=== PATIENT | female | born 2005 | race Two or more races ===

== ENCOUNTER 2024-11-09 05:15 | Inpatient (IN) | payer MEDICAID, SELFPAY ==
[2024-11-09] VITALS (77 sets, daily range): BP systolic 100–118; BP diastolic 53–67; PULSE 75–202; RESP 20; TEMP 36.7–37.2; O2SAT 61–100; BMI 31.6
--- NOTE | 2024-11-09 06:01 | XR_ITS ---
Examination: age Limited Technique: Limited transabdominal sonographic images pelvis Exam date and time: November 09, 2024 0709 hrs. Indications: Preinduction, unknown presentation today Findings: Viable intrauterine gestation cephalic presentation spine maternal left Cardiac motion 152 BPM Estimated weight 4176 g Amniotic fluid index 5.6 cm Cervix 2.5 cm Impression: Viable intrauterine gestation cephalic presentation
[2024-11-09 06:50] LABS: Basophils % (Auto) 0 % (0-2.5); Eosinophils % (Auto) 0 % (0-10); Hematocrit 30.5 % (36.0-46.0); Hemoglobin 9.9 g/dL (12.0-16.0); Immature Granulocytes % (Auto) 1 % (0-0); Immature Granulocytes Auto 0.13 Thou/mm3 (0.00-0.00); Lymphocytes # (Auto) 1.9 Thou/mm3 (1.0-4.8); Lymphocytes % (Auto) 18 % (10-50); Mean Corpuscular HGB Conc 32.5 g/dl (31.0-37.0); Mean Corpuscular Hemoglobin 24.8 pg (25.0-35.0); Mean Corpuscular Volume 76 fL (80-100); Monocytes # (Auto) 0.7 Thou/mm3 (0.0-0.8); Monocytes % (Auto) 6 % (0-12); Neutrophils % (Auto) 74 % (37-80); Nucleated Red Blood Cell % 0 /100 WBC (0); Platelet Count 288 Thou/mm3 (140-440); RDW Standard Deviation 41.5 fL (36.4-46.3); Red Blood Count 3.99 Miln/mm3 (4.00-5.20); White Blood Count 10.7 Thou/mm3 (3.6-11.0)
[2024-11-09 07:06] LABS: Syphilis Nonreactive (Nonreactive)
--- NOTE | 2024-11-09 07:21 | ESHP_ITS ---
Documentation for date of: 11/09/24 OB Labor/Induct. HPI History of Present Illness Chief complaint: 19 y/o 41w 2d presents to L&D for IOL due to postdates. : 1 Para: 0 Term pregnancies: 0 pregnancies: 0 Living children: 0 History of Abortions: Spontaneous and Elective: 0 History of Vaginal deliveries: 0 History of sections: No History of : No OMAR: 10/31/24 Gestational Age (weeks): 41 Gestational Age (days): 2 Indication for induction: post dates History of present illness: 19 y/o 41w 2d presents to L&D for IOL due to postdates, cervix is 1 thick and -3 vertex. membranes intact. GBS is neg. Pt's has been complicated by anemia and possible macrosomic fetus.[facility] sono in September showed an LGA fetus with growth at 91%ile. EFW of fetus as of today is about 4200g. History of Present Dating criteria: LMP confirmed by 1st trimester US Adequate Care: Yes Ultrasounds: normal 1st trimester US and normal mid trimester US Obstetrical complications: none and other (Anemia and macrosomic fetus) Labs Maternal Blood Type: O Pos Labs: Positive: Rubella Titre, Negative: RPR, Hepatitis B, HIV, Chlamydia, Gonorrhea and Group Beta Strep and Unknown: Herpes Type 1, Herpes Type 2 and Covid-19 Review of Systems Review of Systems Systems Reviewed: All systems reviewed, normal except as documented Past Medical History Surgical History SURGICAL: Negative Section Meds Home Medications and Allergies Allergies Allergy/AdvReac Type Severity Reaction Status Date / Time NKA* Allergy Uncoded 10/22/17 21:45 OB Exam Physical Exam Vital signs: Pulse BP Pulse Ox 97 117/66 64 L 11/09/24 05:35 11/09/24 05:35 11/09/24 05:30 Constitutional Constitutional: no acute distress Routine HEENT Exam Head: Present normocephalic and atraumatic Eye: Present EOMI, PERRL and normal accommodation ENT: Present mucous membranes moist Routine Neck Exam Neck: Present full ROM Routine Respiratory Exam Respiratory: Absent respiratory distress Routine Cardiovascular Exam Cardiovascular: Present RRR Routine Abdominal Exam Abdominal: Present soft Comments: Gravid Uterus EFW 4200g Routine Exam External: Present normal urethra appearance; Absent lesions Detailed Labor and Delivery Exam Dilation (cm): 1 Effacement (%): 50 Cervix position: posterior station: -3 Consistency: soft Presentation: Vertex Membranes: intact Baseline heart rate: 130 monitor accelerations: 15x15 monitor decelerations: None senior care variability: Moderate (11-25) Contraction frequency (min): none Routine Extremities Exam Extremities: Present full ROM Routine Back/Spine/Pelvis Exam Back/Spine: Present full ROM Routine Skin Exam Skin: Present intact, dry and warm Routine Neurological Exam Neurological: Present alert, oriented X3 and CN II-XII intact Routine Psychiatric Exam Psychiatric: Present normal affect and normal thought process OB Results Labs 11/09/24 06:00 Labs: Short CBC 11/09/24 Range/Units 06:00 WBC 10.7 (3.6-11.0) Thou/mm3 Hgb 9.9 L (12.0-16.0) g/dL Hct 30.5 L (36.0-46.0) % Plt Count 288 (140-440) Thou/mm3 OB Assessment & Plan Assessment and Plan (1) Encounter for induction of labor: Status: Acute (2) Post term at 41 weeks gestation: Status: Acute (3) Anemia affecting in third trimester: Status: Acute (4) Macrosomia of fetus affecting management of mother in warner in third trimester: Status: Acute Additional Plan Induction method: other (Cervidil) Plan: induction, anticipate NVD and consult MD prn Additional Plan Comment: Routine admit orders Consult anesthesia for an epidural Intermittent monitoring ok early in the induction process OK to eat regular diet until more active labor Shoulder precautions Plan to have MD on the unit during delivery Updated Dr. Prieto
[2024-11-09] MEDS: DINOPROSTONE 10 MG VAG.SUPP VAGINAL (08:00)
[2024-11-10] VITALS (309 sets, daily range): BP systolic 0–153; BP diastolic 0–80; PULSE 77–140; RESP 17–18; TEMP 36.8–37.4; O2SAT 83–100
[2024-11-10] MEDS: MISOPROSTOL 50 mCg TABLET PO (00:27)
[2024-11-10] MEDS: fentaNYL CIT INJ 50 mCg/ML AMP 2ML 100 MCG IV (04:00)
[2024-11-10] MEDS: RINGERS LACTATED 1000 ML 1,000 ML 100 ML IV (05:39)
--- NOTE | 2024-11-10 07:06 | PD.LDPN ---
Documentation for date of: 11/10/24 OB Labor Progress Note Pain Control Pain control: other (Requesting an epidural) Pelvic Exam Dilation (cm): 4 Effacement (%): 90 station: 0 Amniotic membrane status: Ruptured (AROM- clear) Contractions Monitor mode: External Contraction frequency: 2-4 Contraction duration: 40-60 Contraction phase: Contraction Contraction intensity: Moderate Status status: Category l Assessment and Plan Assessment: induction ongoing Plan OB labor note: continuous present management Comments: AROM performed - clear fluids Pt is progressing well Pt to get an epidural If contractions space out then start low dose pitocin
--- NOTE | 2024-11-10 14:07 | PD.LDPN ---
Documentation for date of: 11/10/24 OB Labor Progress Note Pain Control Pain control: epidural Pelvic Exam Dilation (cm): 10 Effacement (%): 100 station: +1 Amniotic membrane status: Ruptured (AROM- clear) Contractions Monitor mode: External Contraction frequency: 2-5 Contraction duration: 40-60 Contraction phase: Contraction Contraction intensity: Moderate Status status: Category l Assessment and Plan Assessment: other (2nd stage) Plan OB labor note: begin Pitocin augmentation Comments: Luis Eduardo start pitocin to get contractions close together so pt can start pushing. Test pushed and pt was able to move baby a little Will turn the epidural off Anticipaet
[2024-11-10] MEDS: OXYTOCIN in NS 30 units 30 UNIT/500 ML BAG IV (14:16)
[2024-11-10] MEDS: MINERAL OIL 30 ML UDC TOP (15:38)
[2024-11-10] MEDS: LIDOCAINE HCL 1% 20 ML VIAL INFL (15:38)
[2024-11-10] MEDS: OXYTOCIN in NS 20 units 20 UNIT/1,000 ML BAG 125 UNIT IV (15:41)
[2024-11-10] MEDS: TRANEXAMIC ACID 1,000 MG IVPB 1,000 MG/100 ML BAG 200 MG IV ×2 (16:05→18:02)
--- NOTE | 2024-11-10 16:38 | PD.LDDELS ---
Data ([place]opez) Data Hx Section: No Maternal Blood Type: O Pos Rubella Titre: Positive RPR: Non-reactive Labs: Negative: RPR, Hepatitis B, HIV, Chlamydia, Gonorrhea and Group Beta Strep and Unknown: Herpes Type 1 and Herpes Type 2 : 1 Para: 0 Term: 0 : 0 Livin : 0 Delivery Data (Lopez) Labor Data Stimulated/Augmented: No Induction: Yes Method: Cervidil ROM Date: 11/10/24 ROM Time: 06:57 Rupture Type: AROM Amniotic Fluid: Clear Delivery Data EDC: 10/31/24 EDC calculated by:: LMP/early US confirmation Labor Onset Stage 1 Date: 11/10/24 Labor Onset Stage 1 Time: 06:57 Labor Onset Stage 2 Date: 11/10/24 Labor Onset Stage 2 Time: 15:05 Delivery Date: 11/10/24 Delivery Time: 15:28 Gestational age (weeks): 41 Gestational age (days): 3 Placenta Delivery Date: 11/10/24 Placenta Delivery Time: 15:39 Delivered by: Kacey Coronado Delivery nurse: Devi Sahni Principal Cloud Architect at delivery: No Support person(s) at delivery: FOB Other staff at delivery: 2nd Nurse Other staff at delivery: 2nd Nurse Other staff at delivery: ObanaCt Delivery Method Delivery: Vaginal Delivery Type: Spontaneous Presentation: Vertex Position: OA Anesthesia Type Primary Anesthesia: Epidural Secondary Anesthesia: Local Delivery Room Medications Other Intrapartum Medications: No Post Delivery Medications: Antibiotics Post Delivery Medications N/A: Yes Placenta Placenta Delivery: Spontaneous Placenta Cultures Obtained: No Placenta Sent for Examination: No Cord Sample: Cord Blood Obtained Episiotomy Episiotomy: None Lacerations #1: Perineal: 2nd degree #2: Labial: Bilaterallabial and right sulcus tear Perineal repair Sutures used for repair: 3.0 Vicryl (CTx2 ) and 4.0 Vicryl (SH x2) EBL Estimated blood loss (ml): 500 Umbilical Cord Umbilical Vessels: 3 Nuchal Cord: Not Applicable Body Cord: Not Applicable Additional Procedures of a viable male infant. Infant's anterior shoulder delivered with gentle downward traction subsequent delivery of the posterior shoulder and the body without complications. Infant placed on mother's abdomen. Vigorous cry upon delivery. Cord was clamped. Cut by FOB. Cord blood obtained. Three-vessel cord noted. Placenta expelled spontaneously and intact. Patient sustained a second-degree perineal laceration. Repaired using a 3-[address] suture. Patient also sustained bilateral labial lacerations both repaired using a 4-0 Vicryl on an SH suture. Patient also tore on the right sulcus another 3-[address] suture was used to repair that. Patient had considerable amount of brisk bleeding. Gave patient TXA x 2. And IV Pitocin. And IV Pitocin to continue to . Excellent hemostasis achieved after vigorous fundal massage and removal of clots from the posterior fornix. EBL 500. Sponge and needle count correct. Mother and baby stable, skin to skin and bonding in LDR. Patient to receive 2 g of Ancef for 24 hours. [place] Data ([place]) [place] Data Gender: Male Infant Weight Grams: 4300 1 Minute Total: 9 5 Minute Total: 9
[2024-11-10] MEDS: RINGERS LACTATED 1000 ML 1,000 ML 999 ML IV (18:33)
[2024-11-10 18:35] LABS: Basophils % (Auto) 0 % (0-2.5); Eosinophils # (Auto) 6.8 Thou/mm3 (0.0-0.5); Eosinophils % (Auto) 29 % (0-10); Hematocrit 22.1 % (36.0-46.0); Immature Granulocytes % (Auto) 1 % (0-0); Immature Granulocytes Auto 0.17 Thou/mm3 (0.00-0.00); Lymphocytes # (Auto) 0.9 Thou/mm3 (1.0-4.8); Lymphocytes % (Auto) 4 % (10-50); Mean Corpuscular HGB Conc 32.6 g/dl (31.0-37.0); Mean Corpuscular Hemoglobin 25.2 pg (25.0-35.0); Mean Corpuscular Volume 77 fL (80-100); Monocytes # (Auto) 1.3 Thou/mm3 (0.0-0.8); Monocytes % (Auto) 6 % (0-12); Neutrophils # (Auto) 14.4 Thou/mm3 (1.8-7.7); Neutrophils % (Auto) 61 % (37-80); Nucleated Red Blood Cell % 0 /100 WBC (0); Platelet Count 249 Thou/mm3 (140-440); RDW Standard Deviation 43.2 fL (36.4-46.3); Red Blood Count 2.86 Miln/mm3 (4.00-5.20); White Blood Count 23.6 Thou/mm3 (3.6-11.0)
[2024-11-10 18:41] LABS: Hemoglobin 7.2 g/dL (12.0-16.0)
[2024-11-10] MEDS: ceFAZolin/D5W 2 GM IV 2 GM/100 ML BAG IV (18:54)
[2024-11-11 03:10] VITALS: BP 105/66; PULSE 100; RESP 16; TEMP 36.8; O2SAT 97
[2024-11-11 03:38] LABS: Basophils % (Auto) 0 % (0-2.5); Eosinophils % (Auto) 0 % (0-10); Hematocrit 25.1 % (36.0-46.0); Immature Granulocytes % (Auto) 1 % (0-0); Immature Granulocytes Auto 0.12 Thou/mm3 (0.00-0.00); Lymphocytes # (Auto) 1.7 Thou/mm3 (1.0-4.8); Lymphocytes % (Auto) 8 % (10-50); Mean Corpuscular HGB Conc 33.5 g/dl (31.0-37.0); Mean Corpuscular Hemoglobin 25.3 pg (25.0-35.0); Mean Corpuscular Volume 76 fL (80-100); Monocytes # (Auto) 1.1 Thou/mm3 (0.0-0.8); Monocytes % (Auto) 6 % (0-12); Neutrophils # (Auto) 16.9 Thou/mm3 (1.8-7.7); Neutrophils % (Auto) 85 % (37-80); Nucleated Red Blood Cell % 0 /100 WBC (0); Platelet Count 187 Thou/mm3 (140-440); RDW Standard Deviation 43.1 fL (36.4-46.3); Red Blood Count 3.32 Miln/mm3 (4.00-5.20); White Blood Count 19.9 Thou/mm3 (3.6-11.0)
[2024-11-11 03:41] LABS: Hemoglobin 8.4 g/dL (12.0-16.0)
[2024-11-11] MEDS: ceFAZolin/D5W 2 GM IV 2 GM/100 ML BAG IV ×2 (06:05→13:48)
--- NOTE | 2024-11-11 07:58 | PD.LDDS ---
DS: Providers Provider Date of admission: 11/09/24 05:15 Primary care physician: Reanna Garcia PA-C Admitting Provider: Juan Prieto MD Attending Provider on Admission: Kacey Coronado CNM Attending Provider on DC: Kacey Coronado CNM Discharging Provider: Kacey Coronado CNM Anticipated date of discharge: 11/11/24 DS: Diagnosis Discharge Diagnosis (1) Normal spontaneous vaginal delivery: Status: Acute (2) Encounter for care of lactating mother: Status: Acute (3) Macrosomia of fetus affecting management of mother in warner in third trimester: Status: Acute (4) Anemia affecting in third trimester: Status: Acute (5) Post term at 41 weeks gestation: Status: Acute (6) Encounter for induction of labor: Status: Acute Problem List Completed Was Problem List Reviewed/Reconciled?: Yes Summary/Hosp Course Brief History: 19 y/o 41w 2d presents to L&D for IOL due to postdates, cervix is 1 thick and -3 vertex. membranes intact. GBS is neg. Pt's has been complicated by anemia and possible macrosomic fetus.[facility] sono [facility] September showed an LGA fetus with growth at 91%ile. EFW of fetus as of today is about 4200g. 11/10/24: of a viable male . Infant's anterior shoulder delivered with gentle downward traction subsequent delivery of the posterior shoulder and the body without complications. Infant placed on mother's abdomen. Vigorous cry upon delivery. Cord was clamped. Cut by FOB. Cord blood obtained. Three-vessel cord noted. Placenta expelled spontaneously and intact. Patient sustained a second-degree perineal laceration. Repaired using a 3-[address] suture. Patient also sustained bilateral labial lacerations both repaired using a 4-0 Vicryl on an SH suture. Patient also tore on the right sulcus another 3-[address] suture was used to repair that. Patient had considerable amount of brisk bleeding. Gave patient TXA x 2. And IV Pitocin. And IV Pitocin to continue to . Excellent hemostasis achieved after vigorous fundal massage and removal of clots from the posterior fornix. EBL 500. Sponge and needle count correct. Mother and baby stable, skin to skin and bonding in LDR. Patient to receive 2 g of Ancef for 24 hours. 11/11/24: day 1. Patient is stable and afebrile doing well. Breast-feeding well. Denies dizziness shortness of breath. No problems voiding. Passing gas. Uterus is nontender fundus firm minimal lochia. Eager to go home. Discharge instructions given. Patient to follow-up with Kacey Coronado CNM in 3 weeks . Peripartum Data Delivery Method: Normal Vaginal Delivery Episiotomy Description: None Laceration Description: yes and see Delivery Summary complications: none [place] 1: Gender: Male Disposition of : home Status at Discharge Cognitive/behavioral status at discharge: Alert and oriented x 3 Functional status at discharge: independent ambulation Overall status at discharge: patient is progressing back to baseline Time Spent with Patient Time attestation: Total time spent providing and/or coordinating discharge services: Time spent: Greater than 30 minutes Exam Vital Signs Temp Pulse Resp BP Pulse Ox 99.3 F 118 H 20 92/53 L 100 11/10/24 13:29 11/10/24 16:18 11/09/24 20:07 11/10/24 16:18 11/10/24 16:18 Constitutional Constitutional: no acute distress Routine HEENT Exam Head: Present normocephalic and atraumatic Eye: Present EOMI, PERRL and normal accommodation ENT: Present mucous membranes moist Routine Neck Exam Neck: Present supple, full ROM and trachea midline Routine Respiratory Exam Respiratory: Present chest non-tender, lungs clear, normal breath sounds and no resp distress Routine Cardiovascular Exam Cardiovascular: Present RRR Routine Abdominal Exam Abdominal: Present soft and normoactive bowel sounds; Absent tenderness or distended Comments: Uterus nontender Fundus firm Routine Exam External: Present normal urethra appearance, swelling and lacerations (Healing); Absent lesions Routine Extremities Exam Extremities: Present full ROM, pulses intact and normal capillary refill; Absent calf tenderness or tenderness Routine Back/Spine/Pelvis Exam Back/Spine: Present full ROM Routine Skin Exam Skin: Present intact, dry and warm Routine Neurological Exam Neurological: Present alert, oriented X3 and CN II-XII intact Routine Psychiatric Exam Psychiatric: Present normal affect and normal thought process Discharge Plan Plan Patient Disposition: HOME (Self Care) Patient condition on transfer: Stable Prescriptions/Referrals Prescriptions/Med Rec: New ibuprofen 800 mg tablet 800 mg PO Q6H MDD 4 PRN (Reason: pain) Qty: 120 0RF docusate sodium [Colace] 100 mg capsule 100 mg PO BID Qty: 60 0RF lanolin 50 % ointment 1 applic topical TID PRN (Reason: skin irritation) Qty: 15 0RF Discontinued ibuprofen 600 MG tablet 1 tab PO Q8HR PRN (Reason: pain) Qty: 30 0RF Referrals: Reanna Garcia PA-C [Primary Care Provider] - Patient/Caregiver Discharge Instructions Meds to Beds: No Discharge Activity: activity as tolerated Other Discharge Activity Instructions:: Follow-up with Kacey Coronado CNM in 3 weeks Education Materials: After a Vaginal , How to Breastfeed, After Delivery Concerns, : Caring for Yourself Print Language: Palauan Stand Alone Forms: Maryam Award Info., Patient Portal Info Letter Discharge Order Discharge Orders: Discharge (Routine); Ordered 11/11/24 Ordered By: Kacey Coronado Planned Discharge Date 11/11/24
[2024-11-11 08:15] VITALS: BP 109/66; PULSE 93; RESP 18; TEMP 37; O2SAT 96
[2024-11-11] MEDS: IBUPROFEN TAB 400 MG TABLET 800 MG PO (08:27)
[2024-11-11] MEDS: DOCUSATE SOD 100 MG CAPSULE PO (08:27)
[2024-11-11 11:57] LABS: Basophils % (Auto) 0 % (0-2.5); Eosinophils % (Auto) 0 % (0-10); Hematocrit 24.3 % (36.0-46.0); Immature Granulocytes % (Auto) 1 % (0-0); Immature Granulocytes Auto 0.17 Thou/mm3 (0.00-0.00); Lymphocytes # (Auto) 1.8 Thou/mm3 (1.0-4.8); Lymphocytes % (Auto) 11 % (10-50); Mean Corpuscular HGB Conc 33.3 g/dl (31.0-37.0); Mean Corpuscular Hemoglobin 25.2 pg (25.0-35.0); Mean Corpuscular Volume 76 fL (80-100); Monocytes # (Auto) 0.9 Thou/mm3 (0.0-0.8); Monocytes % (Auto) 5 % (0-12); Neutrophils # (Auto) 14.4 Thou/mm3 (1.8-7.7); Neutrophils % (Auto) 83 % (37-80); Nucleated Red Blood Cell % 0 /100 WBC (0); Platelet Count 174 Thou/mm3 (140-440); RDW Standard Deviation 43.4 fL (36.4-46.3); Red Blood Count 3.21 Miln/mm3 (4.00-5.20); White Blood Count 17.3 Thou/mm3 (3.6-11.0)
[2024-11-11 12:05] LABS: Hemoglobin 8.1 g/dL (12.0-16.0)
[2024-11-11 12:25] VITALS: BP 97/58; PULSE 87; RESP 16; TEMP 36.8
[2024-11-11 16:31] VITALS: BP 111/65; PULSE 90; RESP 18; TEMP 36.8
--- NOTE | 2024-11-12 11:42 | CHAP ---
Addendum entered by Yovanny Correia 11/12/24 11:43: Patient was visited on 11/09, not 11/12. Time was 11:30 Original Note: Patient was visited by the Spiritual Care Volunteer who gave Baby Ware. Volunteer was in the hospital from c10:00-11:30)
== END 2024-11-11 17:40 | disposition home or self-care (01) | DRG 560 ==
LOC: S4SX 11-10 16:24 → S4NX 11-10 23:39
PROVIDERS: Admitting Provider Obstetrics & Gynecology; PCP Physician Assistant; Visit Provider Nurse Practitioner Women's Health
DX: O48.0 Post-term pregnancy (principal); Z37.0 Single live birth; Z3A.41 41 weeks gestation of pregnancy; O70.1 Second degree perineal laceration during delivery; O36.63X0 Maternal care for excessive fetal growth, third trimester, not applicable or unspecified; O99.02 Anemia complicating childbirth
CPT/HCPCS: 36415; 59409; 76815; 85025; 86780; 86850; 86900; 86901; 86923; 94762; J0689; J2590; J2795; J3010; J3490; J7120; P9016; A9270; J0690

== ENCOUNTER 2025-10-29 21:41 | Emergency (ER) | payer MEDICAID, SELFPAY ==
[2025-10-29 21:42] VITALS: BMI 28.3
[2025-10-29 21:59] VITALS: BP 119/76; PULSE 80; RESP 16; TEMP 36.8; O2SAT 97
--- NOTE | 2025-10-29 22:04 | XR_ITS ---
Examination: CT abdomen and pelvis without contrast. Coronal 3-D reconstructions. Sagittal 2-D reconstructions. Date and time of exam: October 29, 2025, 1146 hours INDICATIONS: Upper abdominal pain 11 months CTDI: vol (mGy): 10.5 DLP: (mGycm): 581 Technique: Axial images of the abdomen have been obtained, 3 mm slice thickness Intravenous contrast material has not been administered. Low dose protocols were performed. One or more of the following dose reduction techniques were used; automated exposure control, adjustment of the mA and/or KV according to patient size, use of iterative reconstruction technique. Findings: No focal liver or splenic lesions Contracted gallbladder No pancreatic or adrenal mass No renal or ureteral calculi, no hydronephrosis Aorta normal size Normal appendix Localized inflammation in the mesenteric fat in the right lower abdomen image 128 No bowel obstruction or diverticulitis, 4 cm right ovarian cyst Urinary bladder intact Intact osseous structures IMPRESSION: No renal or ureteral calculi, no hydronephrosis Normal appendix Localized inflammation in the mesenteric fat which appears to extend to the right ovarian 4 cm cystic mass, recommend pelvic sonography follow-up
--- NOTE | 2025-10-29 22:04 | PD.EDRME ---
Rapid Medical Screening Exam RME Arrival date/time: 10/29/25 21:41 This is a case of 20-year-old female with no medical history came into the emergency room due to generalized abdominal pain for 2 weeks associated with nausea vomiting persistence of the symptoms. Thus decided to sought consult here in the emergency room denies Chief Complaint: Abdominal Pain Time Seen by Provider: 10/29/25 21:44 Vital signs: Vital Signs Temperature 98.3 F 10/29/25 21:59 Pulse Rate 80 10/29/25 21:59 Respiratory Rate 16 10/29/25 21:59 Blood Pressure 119/76 10/29/25 21:59 Pulse Oximetry (%) 97 10/29/25 21:59 Oxygen Delivery Method Room Air 10/29/25 21:59 Exam: Moderate tenderness on both lower abdomen and epigastric area no guarding no rebound no rigidity Clinical Impression: abdominal pain
[2025-10-29 22:34] LABS: Collection Type, Urine Clean Catch
[2025-10-29 22:42] LABS: Basophils # (Auto) 0.0 Thou/mm3 (0.0-0.2); Basophils % (Auto) 0 % (0-2.5); Eosinophils # (Auto) 0.1 Thou/mm3 (0.0-0.5); Eosinophils % (Auto) 1 % (0-10); Hematocrit 34.6 % (36.0-46.0); Hemoglobin 10.8 g/dL (12.0-16.0); Immature Granulocytes Auto 0.03 Thou/mm3 (0.00-0.00); Lymphocytes # (Auto) 2.9 Thou/mm3 (1.0-4.8); Lymphocytes % (Auto) 29 % (10-50); Mean Corpuscular HGB Conc 31.2 g/dl (31.0-37.0); Mean Corpuscular Hemoglobin 23.6 pg (25.0-35.0); Mean Corpuscular Volume 76 fL (80-100); Monocytes # (Auto) 0.6 Thou/mm3 (0.0-0.8); Monocytes % (Auto) 6 % (0-12); Neutrophils # (Auto) 6.3 Thou/mm3 (1.8-7.7); Neutrophils % (Auto) 63 % (37-80); Nucleated Red Blood Cell # 0.00 Thou/mm3 (0.00-0.00); Nucleated Red Blood Cell % 0 /100 WBC (0); Platelet Count 336 Thou/mm3 (140-440); RDW Standard Deviation 43.1 fL (36.4-46.3); Red Blood Count 4.57 Miln/mm3 (4.00-5.20); White Blood Count 9.9 Thou/mm3 (3.6-11.0)
[2025-10-29 22:56] LABS: Alanine Aminotransferase 22 U/L (10-49); Albumin, Serum 5.1 gm/dL (3.5-5.0); Albumin/Globulin Ratio 1.9 (1.2-2.2); Alkaline Phosphatase 66 U/L (46-116); Anion Gap 10 (7-16); Aspartate Amino Transferase 27 U/L (0-34); BUN/Creatinine Ratio 18 Ratio (12-20); Bilirubin,Total 0.3 mg/dL (0.3-1.2); Blood Urea Nitrogen 11 mg/dL (9-23); Calcium 9.6 mg/dL (8.3-10.6); Calcium (Corrected) 9.6 mg/dL (8.5-10.1); Carbon Dioxide 26.6 mMol/L (20.0-31.0); Chloride 107 mMol/L (98-107); Creatinine (Component) 0.6 mg/dL (0.6-1.3); Estimated Creatinine Clearance 140.4 mL/min (>60); Globulin 2.7 gm/dL (2.3-3.5); Glucose 108 mg/dL (74-106); Lipase 34 U/L (12-53); Osmolality,Calculated 287 (275-295); Potassium 3.7 mMol/L (3.4-5.1); Sodium 144 mMol/L (136-145); Total Protein 7.8 gm/dL (5.7-8.2); eGFR > 60 See Note
[2025-10-29 23:00] LABS: Bilirubin,Urine Negative (Negative); Blood,Urine Negative (Negative); Clarity,Urine Clear (Clear/Hazy); Color,Urine Colorless (Lt Yel-Yel); Glucose, Urine Negative (Negative); Ketones,Urine Negative (Negative); Leukocyte Esterase,Urine Positive (Negative); Nitrite,Urine Negative (Negative); PH,Urine 6.5 (5.0-7.0); Protein,Urine Negative (Neg - Trace); RBC,Urine 2 /hpf (0-3); Specific Gravity,Urine 1.012 (1.001-1.035); Squamous Epithelial Cell,Urine 4 /hpf (0-5); Urobilinogen,Urine Negative mg/dL (0.0-1.0); WBC,Urine 4 /hpf (0-5)
[2025-10-29 23:02] LABS: HCG Qualitative,Urine Negative
[2025-10-30 01:04] VITALS: BP 118/74; PULSE 79; RESP 16; TEMP 36.7; O2SAT 99
--- NOTE | 2025-10-30 01:16 | XR_ITS ---
Examination: Pelvic ultrasound, transabdominal, complete Technique: Transabdominal ultrasound of the pelvis performed using grayscale imaging Date and time of exam: October 30, 2025, 0155 hours INDICATIONS: Pelvic pain and distention 1 year FINDINGS: Uterus 7.0 cm endometrial stripe 0.9 cm No uterine mass or intrauterine gestation Right ovary 5.2 cm arterial flow Right ovarian cystic mass 4.3 x 3.7 x 3.3 cm Left ovary obscured by bowel gas IMPRESSION: Right ovarian cyst 4.3 x 3.7 x 3.3 cm, recommend 3-month follow-up
--- NOTE | 2025-10-30 04:50 | EDNOTE_ITS ---
ED Abdominal Pain RME/HPI General Chief Complaint: Abdominal Pain Stated complaint: ABD PAIN Time seen by provider: 10/29/25 21:44 Arrival date/time: 10/29/25 21:41 Limitations: no limitations RME / HPI RME / HPI narrative: 10/29/25 21:41 This is a case of 20-year-old female with no medical history came into the emergency room due to generalized abdominal pain for 2 weeks associated with nausea vomiting persistence of the symptoms. Thus decided to sought consult here in the emergency room denies --------- Dr. Keller's Main ED Evaluation: 20yo female with no significant past medical history presents to the ED for a chief complaint of generalized abdominal pain x 1000. No radiation of pain. Patient denies N/V/D, fever, chills, dysuria, or any other associated symptoms. NKA. Related Data Previous Rx's ?Medication ?Instructions ?Recorded docusate sodium 100 mg capsule 100 mg PO BID #60 caps 11/10/24 (Colace) ibuprofen 800 mg tablet 800 mg PO Q6H PRN pain #120 tabs 11/10/24 lanolin 50 % topical ointment 1 applic topical TID PRN skin 11/10/24 irritation #15 tubes Allergies Allergy/AdvReac Type Severity Reaction Status Date / Time No Known Allergies Allergy Unverified 10/29/25 21:45 Review of Systems Review of Systems Systems Reviewed: All systems reviewed, normal except as documented Past Medical History Past Medical History NEUROLOGIC: Negative Neurological Disorders CARDIAC: Negative Cardiac Disorders or Congestive Heart Failure RESPIRATORY: Negative Chronic Obstructive Pulmonary Disease (COPD) GASTROINTESTINAL: Negative Gastrointestinal Disorders or Hepatitis GENITOURINARY: Negative Genitourinary Disorders or Renal Disease REPRODUCTIVE: Negative Endometriosis, Genital Herpes, Gonorrhea, Pelvic Inf lammatory Disease, Previous Pregnancies, Syphilis or Uterine Prolapse MUSCULOSKELETAL: Negative Musculoskeletal Disorders ENDOCRINE: Negative Endocrine Disorders, Diabetes Mellitus Type 1 or Diabetes Mellitus Type 2 HEMATOLOGIC: Positive Anemia OTHER HISTORY: Negative Hospitalization, Autoimmune Disease, Down Syndrome, Developmental Delay, Shingles, Falls, Blood Transfusions, Anesthesia Reactions, Organ Transplant, MRSA, VRSA, Vancomycin-Resistant Enterococci, Human Immunodeficiency Virus (HIV), Chicken Pox, Measles, Mumps, Rubella (Citizen Of [place] Measles), Pertussis, Clostridium Difficile or Cancer Family History FAMILY HISTORY: Negative Family Psychiatric Problems, Family Respiratory Disorders, Family Cardiac Disorders, Family Gastrointestinal Problems, Family Cancer, Family Surgery or Family Anesthesia Reaction Surgical History SURGICAL: Negative Cardiac Surgery, Endocrine Surgery, Ear Surgery, Abdominal Surgery, Nephrectomy, Joint Replacement, Neurologic Surgery, Mastectomy, Lumpectomy, Hysterectomy, Tubal Ligation, Section or Organ Transplant Social History SMOKING STATUS: Never smoker ED Exam General Limitations: Present no limitations General appearance: Present alert and in no apparent distress Head Head exam: Present atraumatic Eye Eye exam: Present normal appearance, PERRL and EOMI ENT ENT exam: Present normal exam, normal oropharynx and mucous membranes moist Neck Neck exam: Present normal inspection, full ROM and trachea midline Chest Chest inspection: Present normal inspection and symmetric chest wall rise Respiratory Respiratory exam: Present normal lung sounds bilaterally Cardiovascular Cardiovascular exam: Present regular rate, normal rhythm and normal heart sounds Abdominal Exam Abdominal exam: Present soft and normal bowel sounds Extremities Exam Extremities exam: Present normal inspection and full ROM Back Exam Back exam: Present normal inspection and full ROM Neurological Exam Neurological exam: Present alert, oriented X3 and CN II-XII intact Psychiatric Psychiatric exam: Present normal affect and normal mood Skin Skin exam: Present warm, dry, intact and normal color Course Quality Measures none Orders Category Date Time Status CT abdomen pelvis wo con Stat Exams 10/29/25 22:04 Completed US pelvic complete Stat Exams 10/30/25 01:16 Taken CBC Stat Lab 10/29/25 22:13 Completed Comprehensive Metabolic Panel Stat Lab 10/29/25 22:13 Completed HCG Qualitative,Urine Stat Lab 10/29/25 22:10 Completed Lipase Stat Lab 10/29/25 22:13 Completed Urinalysis Stat Lab 10/29/25 22:10 Completed Vital Signs Vital signs: Vital Signs Temperature 98.3 F 10/29/25 21:59 Pulse Rate 80 10/29/25 21:59 Respiratory Rate 16 10/29/25 21:59 Blood Pressure 119/76 10/29/25 21:59 Pulse Oximetry (%) 97 10/29/25 21:59 Oxygen Delivery Method Room Air 10/29/25 21:59 Abdominal Pain MDM MDM Narrative MDM Narrative:: Scribe Attestation: 10/30/25 - Zahra Adams am scribing for and in the presence of Dr. Keller. Patient data External records reviewed:: [facility] previous records (Per chart review, patient has no previous ED visits.) Clinical information provided by:: patient Social determinants that could affect healthcare access:: none Patient has the following chronic illnesses:: none How is presenting disease/condition affected by chronic disease/condition?: no chronic disease Evaluation data The following diagnostics were reviewed and interpreted by me:: lab results and radiology exam(s) Lab and/or radiology exams considered but not ordered:: none Interpretation Summary: WBC normal, HnH 10.8/34.6, CMP normal, Lipase normal, UA unremarkable, HCG negative. [facility] Report Signed Patient: MYESHA OLIVIA Record#: [id number] Birthdate: 2005 Age/Sex: 20 / F Location: [facility] Attending Dr: Ordering Physician: Rene Beasley Date of Service: 10/29/25 Procedure(s): CT abdomen pelvis wo con Accession Number(s): [id number] cc: Saman Thakkar MD; Jose Luis Hubbard MD; Rene Beasley~ Examination: CT abdomen and pelvis without contrast. Coronal 3-D reconstructions. Sagittal 2-D reconstructions. Date and time of exam: October 29, 2025, 1146 hours INDICATIONS: Upper abdominal pain 11 months CTDI: vol (mGy): 10.5 DLP: (mGycm): 581 Technique: Axial images of the abdomen have been obtained, 3 mm slice thickness Intravenous contrast material has not been administered. Low dose protocols were performed. One or more of the following dose reduction techniques were used; automated exposure control, adjustment of the mA and/or KV according to patient size, use of iterative reconstruction technique. Findings: No focal liver or splenic lesions Contracted gallbladder No pancreatic or adrenal mass No renal or ureteral calculi, no hydronephrosis Aorta normal size Normal appendix Localized inflammation in the mesenteric fat in the right lower abdomen image 128 No bowel obstruction or diverticulitis, 4 cm right ovarian cyst Urinary bladder intact Intact osseous structures IMPRESSION: No renal or ureteral calculi, no hydronephrosis Normal appendix Localized inflammation in the mesenteric fat which appears to extend to the right ovarian 4 cm cystic mass, recommend pelvic sonography follow-up Dictated By: Jose Luis Hubbard MD Signed By: <Electronically signed by Jose Luis Hubbard MD in OV> 12/03/25 0001 Pelvic ultrasound (transabdominal ). October 30, 2025 0155 hours Clinical history: Poss cyst. Technique: Real-time, grayscale, transabdominal and transvaginal pelvic ultrasound was performed using Duplex scanning including arterial inflow, venous outflow, color and spectral Doppler. Correlated with prior CT October 29, 2025. Findings: Uterus is 7.0 x 3.0 x 4.5 cm. Right ovary is 5.2 x 4.7 x 4.1 cm, with a simple 4.3 x 3.7 x 3.3 cm cyst. Right ovary is normal Doppler flow. No free fluid. Left ovary is not visualized. Endometrium is 9 mm thick. Impression: Simple 4.3 cm right ovarian cyst. Recommend ultrasound follow-up. Nonvisualized left ovary. This report has been electronically signed by: José Luis Bedlola MD. Medications / Prescriptions Medications or Prescriptions considered but not ordered:: none Medication administrations:: none Consultations Consultation(s) initiated? (list below): No Diagnosis Differential diagnosis abdominal pain: diverticulitis, pancreatitis and other (gastritis, ovarian cyst) Most likely diagnosis given after review of the tests above:: see clinical impression below Admission Indicated Admission indicated?: not indicated Admission Request Was there a request for admission?: No Disposition Plan Disposition Plan: Discharge Discharge Attestation Discharge Attestation: The patient and all family members were given an opportunity to ask questions and understood the discharge instructions. Discharge instructions specifically effects, indications for sooner follow up or return to the emergency department, and the expected course of current diagnosis. Patient condition: Stable Discharge Plan Plan Patient Disposition: HOME (Self Care) Patient condition on transfer: Stable Prescriptions/Referrals Prescriptions/Med Rec: No Action ibuprofen 800 mg tablet 800 mg PO Q6H MDD 4 PRN (Reason: pain) Qty: 120 0RF docusate sodium [Colace] 100 mg capsule 100 mg PO BID Qty: 60 0RF lanolin 50 % ointment 1 applic topical TID PRN (Reason: skin irritation) Qty: 15 0RF Referrals: Saman Thakkar MD [Primary Care Provider, Family Practice] - In 1 week Problem List Clinical Impression: Cyst Patient/Caregiver Discharge Instructions Education Materials: ED Ovarian Cyst Additional Instructions: Return to the emergency department worsening symptoms or any other concerns. You can take [id number] Tylenol and or Motrin as needed. Print Language: Mohawk Stand Alone Forms: Maryam Award Info., Work/School Release, Patient Portal Info Letter
[2025-10-30 05:34] VITALS: RESP 16
== END 2025-10-30 05:36 | disposition home or self-care (01) ==
PROVIDERS: Nurse Practitioner Family; Emergency Provider Emergency Medicine; PCP Family Medicine
DX: N83.291 Other ovarian cyst, right side (principal)
CPT/HCPCS: 36415; 74176; 76856; 80053; 81001; 81025; 83690; 85025; 99283